=== PATIENT | female | born 1990 | race Caucasian/White ===

== ENCOUNTER 2017-06-05 09:44 | Emergency (ER) | END 2017-06-05 11:22 | disposition home or self-care (01) ==

== ENCOUNTER 2017-11-09 09:11 | Emergency (ER) | END 2017-11-09 12:35 | disposition home or self-care (01) ==

== ENCOUNTER 2018-04-12 09:29 | Emergency (ER) | END 2018-04-12 12:19 | disposition home or self-care (01) ==